=== PATIENT | female | born 1950 | race Caucasian/White ===

== ENCOUNTER 2019-06-03 05:32 | Day surgery (SDC) | payer MEDICARE, MEDICAID ==
[2019-05-27 14:03] LABS: BASOPHILS % (AUTO) 0.5 % (0-1); EOSINOPHILS # (AUTO) 0.3 X10'3 (0-0.9); EOSINOPHILS % (AUTO) 3.1 % (0-6); LYMPHOCYTES # (AUTO) 2.3 X10'3 (1.1-4.8); MEAN CORPUSCULAR HEMOGLOBIN 30.4 PG (27.0-31.0); MEAN CORPUSCULAR HGB CONC 34.1 g/dL (33.0-36.5); MEAN CORPUSCULAR VOLUME 89.2 FL (78-98); MEAN PLATELET VOLUME 9.4 FL (7.4-10.4); MONOCYTES # (AUTO) 0.9 X10'3 (0-0.9); MONOCYTES % (AUTO) 9.2 % (2-12); NEUTROPHILS % (AUTO) 63.2 % (42-75); PRE OP HEMATOCRIT 41.5 % (35.0-45.0); PRE OP HEMOGLOBIN 14.2 g/dL (12.0-16.0); PRE OP PLATELET COUNT 228 X10'3 (140-440); RED BLOOD COUNT 4.65 X10'6 (4.20-5.60); RED CELL DISTRIBUTION WIDTH 13.6 % (11.5-14.5)
[2019-05-27 14:16] LABS: ALBUMIN 3.8 G/DL (3.4-5.0); ALBUMIN/GLOBULIN RATIO 0.9 (1.1-1.5); ALKALINE PHOSPHATASE 70 IU/L (46-116); BLOOD UREA NITROGEN 24 MG/DL (7-18); BUN/CREATININE RATIO 24.5 (6.6-38.0); CALCIUM 9.2 MG/DL (8.5-10.1); CHLORIDE 106 MMOL/L (99-107); CREATININE 0.98 MG/DL (0.40-0.90); PRE OP ALT 16 U/L (30-65); PRE OP ANION GAP 7 (8-16); PRE OP AST 15 U/L (10-37); PRE OP BILIRUB, TOTAL 0.2 MG/DL (0.0-1.0); PRE OP GLUCOSE 157 MG/DL (70-104); PRE OP POTASSIUM 4.2 MMOL/L (3.4-5.1); PRE OP SODIUM 143 MMOL/L (135-145); TOTAL CARBON DIOXIDE 29.9 MMOL/L (24-32); eGFR 56 ML/MIN
[2019-06-03] VITALS (8 sets, daily range): BP systolic 131–149; BP diastolic 76–93
[~2019-06-03] VITALS: Ht 170.2 cm; Wt 122.0 kg
[~2019-06-03 05:32] MED LIST: ASPI-842 PO; CHOL400C8 PO; DOCU100T PO; GLIM4TAB4 PO; LEVO50TA8 PO; LINA5TAB4 PO; LISI40TA4 PO; MELO-102 PO; METF500T PO; OMEG1CAP2 PO; OXYB10TA4 PO; PRAV20TA4 PO; ceFAZolin 1GM/D5W- ADD-VANTAGE 50 ML IV ONE; ceFAZolin 2gm in dextrose, iso 50 ML IV ONE; cefazolin/dext.iso 2gm/100ml 100 ML IV ONE; famotidine 20mg tablet PO ONE; ringers solution, lacted 1,000 ML IV SCH
[2019-06-03] MEDS ORDERED: LIDOcaine 1% (10mg/ml) 2ml vial ONE (05:48)
[2019-06-03] MEDS ORDERED: BUPIVAcaine/PF 2.5mg/ml (0.25%) 10ml vial ONE (06:54)
[2019-06-03] MEDS ORDERED: BUPIVAcaine/PF 2.5mg/ml (0.25%) 10ml vial IJ ONE (06:57)
[2019-06-03] MEDS ORDERED: LIDOcaine 0.5% (5mg/ml) 50ml vial ONE (07:05)
[2019-06-03] MEDS ORDERED: fentaNYL/PF 50MCG/1 ML 2ML syringe ONE (07:07)
[2019-06-03] MEDS ORDERED: midazolam 2 mg/2 ml injection ONE (07:07)
[2019-06-03] MEDS ORDERED: meperidine/PF 25mg/ml syringe IV PRN ×3 (07:10)
[2019-06-03] MEDS ORDERED: ringers solution, lacted 1,000 ML IV SCH (07:10)
[2019-06-03] MEDS ORDERED: morphine 4 MG/ML inj SYRINge IV PRN ×2 (07:10)
[2019-06-03] MEDS ORDERED: proCHLORperazine 10 MG/2 ml inj IV PRN (07:10)
[2019-06-03] MEDS ORDERED: ondansetron/PF 4mg/2ml inj IV PRN (07:10)
--- NOTE | 2019-06-03 07:40 | NUR ---
Received from OR via BED, accompanied by Anesthesiologist DR BURNS and report given by Anesthesiologist. 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 Addendum: 06/03/19 at 0801 by Tasha Arthur RN Amended: Links added.
--- NOTE | 2019-06-03 09:00 | NUR ---
D/C INSTRUCTIONS GIVEN AND GONE OVER W/PT WHO VERBALIZES UNDERSTANDING, PT D/CD TO HOME VIA W/C TO PRIVATE VEHICLE W/O INCIDENT. Addendum: 06/03/19 at 0911 by Tasha Arthur RN Amended: Links added.
== END 2019-06-03 09:00 | disposition home or self-care (01) ==
LOC: PAS 05:32
PROVIDERS: ATTEND Orthopaedic Surgery Hand Surgery
DX: G56.01 Carpal tunnel syndrome, right upper limb (principal); G47.30 Sleep apnea, unspecified; Z96.652 Presence of left artificial knee joint; Z90.710 Acquired absence of both cervix and uterus; Z98.890 Other specified postprocedural states; Z79.899 Other long term (current) drug therapy
CPT/HCPCS: 36415; 64721; 80053; 82948; 85025; 93005; J0690; J2001; J2250; J3010; J3490; A4215; J7120